=== PATIENT | female | born 1965 ===

== ENCOUNTER → 2022-06-03 11:07 | Outpatient (BNVA) | payer OTHER, SELFPAY | PROVIDERS: PCP Internal Medicine; Visit Provider Internal Medicine Rheumatology | DX: Z13.89 Encounter for screening for other disorder (principal) ==

== ENCOUNTER 2022-06-03 12:08 | Outpatient (REF) | payer OTHER, SELFPAY ==
[2022-06-03 13:58] LABS: MANUAL DIFF FLAG NO
[2022-06-03 14:14] LABS: Basophils Percent Auto 0.5 % (0-2); Eosinophils Absolute Auto 0.1 X10*3/uL (0.0-0.4); Hematocrit 41.3 % (37.0-47.0); Hemoglobin 13.3 g/dl (12.0-16.0); Imm Gran Abs Auto 0.02 X10*3/uL (0.00-0.03); Imm Gran Pct Auto 0.3 % (0.0-0.4); Lymphocytes Percent Auto 17.5 % (20-40); Mean Corpuscular HGB Conc 32.2 g/dl (31.0-35.0); Mean Corpuscular Hemoglobin 29.3 pg (27.0-33.0); Mean Platelet Volume 11.2 fL (9.4-12.3); Monocytes Absolute Auto 0.4 X10*3/uL (0.1-1.2); Monocytes Percent Auto 6.7 % (2-11); Neutrophils Absolute Auto 4.4 x10*3/uL (2.0-8.3); Platelet Count 262 X10*3/uL (160-400); Red Blood Count 4.54 X10*6/uL (4.20-5.50); Red Cell Distribution Width 14.3 % (11.0-16.0); White Blood Count 5.9 X10*3/uL (4.8-10.8)
[2022-06-03 14:38] LABS: Alanine Aminotransferase 10 U/L (0-31); Albumin Level 4.3 g/dL (3.5-5.0); Alkaline Phosphatase 100 U/L (39-117); Anion Gap 15 (12-20); Aspartate Amino Transferase 19 U/L (5-31); Bilirubin Total 0.6 mg/dL (0.0-1.0); Blood Urea Nitrogen 6 mg/dL (9-16); C Reactive Protein 2.69 mg/dL (< or = 0.50); Calcium 9.4 mg/dL (8.4-10.2); Carbon Dioxide 25 mmol/L (22-29); Chloride 102 mmol/L (96-108); Estimated Glomerular Filt Rate > 60; Glucose Random 87 mg/dL (60-115); Potassium 4.2 mmol/L (3.3-5.1); Sodium 138 mmol/L (135-145); Total Protein 8.9 g/dL (6.5-8.0)
[2022-06-03 14:52] LABS: Creatinine Urine 28.16 mg/dL; Total Protein Urine Random < 7 mg/dL (<12)
[2022-06-03 15:00] LABS: Erythrocyte Sedimentation Rate 64 MM/HR (0-20)
[2022-06-04 08:44] LABS: HBS Num1 13.65 mIU/mL (0-7.99); HBc Num1 0.08 S/CO (0.00-0.79); HBsAGNum1 0.35 S/CO (0.00-0.99); Hepatitis A Antibody IgM 0.14 Index (0-0.79); Hepatitis B Core Antibody Nonreactive (Nonreactive); Hepatitis B Surface Antigen Negative (Negative); ~HepC Num1 0.12 S/CO (0.00-0.79); ~Hepatitis A Antibody IgM Nonreactive (Nonreactive); ~Hepatitis B Surface Antibody REACTIVE (Nonreactive); ~Hepatitis C Antibody Nonreactive (Nonreactive)
[2022-06-06 18:58] LABS: TS Negative Control Passed; TS Panel A 0; TS Panel B 0; TS Positive Control Passed; TSpotTB Negative (Negative)
== END 2022-06-03 12:09 | disposition home or self-care (01) ==
LOC: HO.10HDL 12:08
PROVIDERS: Visit Provider Internal Medicine Rheumatology
DX: M06.9 Rheumatoid arthritis, unspecified (principal); Z79.899 Other long term (current) drug therapy
CPT/HCPCS: 36415; 80053; 84156; 85025; 85652; 86140; 86481; 86704; 86706; 86709; 86803; 87340

== ENCOUNTER 2022-07-16 14:28 | Outpatient (REF) | payer OTHER, SELFPAY ==
--- NOTE | ~2022-07-16 | XR_ITS ---
EXAMINATION: XR HAND, RIGHT XR HAND, LEFT CLINICAL INFORMATION: Rheumatoid arthritis. COMPARISON: None TECHNIQUE: 3 views each hand. FINDINGS: RIGHT HAND: There is flexion deformity at the 1st MCP joint and extension deformity PIP joint 1st digit, Hitchhiker's Thumb. There is mild flexion deformity PIP joint 2nd digits and likely extension deformities of PIP joints 2nd through 4th digits. No bony erosive changes seen. There is mild osteopenia. Mild ulnar deviation of DIP joints of 2nd and 3rd digits seen The joint spaces are reduced throughout the PIP and DIP joints. Mild reduction in radiocarpal joint spaces present. No bony fracture seen. There is mild soft tissue swelling along the PIP joints and MCP joints. XR/XR hand RT min 3V IMPRESSION: 1. Flexion deformity 1st MCP joint and extension deformity PIP joint [id number] digit. 2. Flexion deformity PIP joints 2nd through 4th digits. 3. No visible acute fracture or dislocation seen. 4. Findings are most suggestive of rheumatoid arthritis with secondary osteoarthritis.
--- NOTE | ~2022-07-16 | XR_ITS ---
EXAMINATION: XR HAND, RIGHT XR HAND, LEFT CLINICAL INFORMATION: Rheumatoid arthritis. COMPARISON: None TECHNIQUE: 3 views each hand. FINDINGS: RIGHT HAND: There is flexion deformity at the 1st MCP joint and extension deformity PIP joint 1st digit, Hitchhiker's Thumb. There is mild flexion deformity PIP joint 2nd digits and likely extension deformities of PIP joints 2nd through 4th digits. No bony erosive changes seen. There is mild osteopenia. Mild ulnar deviation of DIP joints of 2nd and 3rd digits seen The joint spaces are reduced throughout the PIP and DIP joints. Mild reduction in radiocarpal joint spaces present. No bony fracture seen. There is mild soft tissue swelling along the PIP joints and MCP joints. XR/XR hand LT min 3V IMPRESSION: 1. Flexion deformity 1st MCP joint and extension deformity PIP joint [id number] digit. 2. Flexion deformity PIP joints 2nd through 4th digits. 3. No visible acute fracture or dislocation seen. 4. Findings are most suggestive of rheumatoid arthritis with secondary osteoarthritis.
[2022-07-16 14:49] LABS: MANUAL DIFF FLAG NO
[2022-07-16 15:15] LABS: Basophils Percent Auto 0.4 % (0-2); Eosinophils Absolute Auto 0.1 X10*3/uL (0.0-0.4); Eosinophils Percent Auto 1.1 % (0-4); Hematocrit 39.3 % (37.0-47.0); Imm Gran Abs Auto 0.01 X10*3/uL (0.00-0.03); Imm Gran Pct Auto 0.2 % (0.0-0.4); Lymphocytes Absolute Auto 1.4 X10*3/uL (1.2-4.9); Lymphocytes Percent Auto 25.7 % (20-40); Mean Corpuscular HGB Conc 33.1 g/dl (31.0-35.0); Mean Corpuscular Hemoglobin 29.9 pg (27.0-33.0); Mean Corpuscular Volume 90.3 fL (80.0-98.0); Mean Platelet Volume 11.3 fL (9.4-12.3); Monocytes Absolute Auto 0.4 X10*3/uL (0.1-1.2); Monocytes Percent Auto 6.6 % (2-11); Neutrophils Absolute Auto 3.6 x10*3/uL (2.0-8.3); Platelet Count 190 X10*3/uL (160-400); Red Blood Count 4.35 X10*6/uL (4.20-5.50); Red Cell Distribution Width 15.1 % (11.0-16.0); White Blood Count 5.5 X10*3/uL (4.8-10.8)
[2022-07-16 16:05] LABS: Alanine Aminotransferase 38 U/L (0-31); Aspartate Amino Transferase 28 U/L (5-31); C Reactive Protein 0.81 mg/dL (< or = 0.50); Estimated Glomerular Filt Rate > 60
[2022-07-16 16:11] LABS: Erythrocyte Sedimentation Rate 38 MM/HR (0-20)
== END 2022-07-16 14:29 | disposition home or self-care (01) ==
LOC: HO.LAB 14:28
PROVIDERS: PCP Internal Medicine; Visit Provider Internal Medicine Rheumatology
DX: M06.9 Rheumatoid arthritis, unspecified (principal); Z79.899 Other long term (current) drug therapy
CPT/HCPCS: 36415; 73130; 82565; 84450; 84460; 85025; 85652; 86140

== ENCOUNTER → 2022-07-21 11:07 | Outpatient (BNVA) | payer OTHER, SELFPAY | PROVIDERS: PCP Internal Medicine; Visit Provider Internal Medicine Rheumatology | DX: Z13.89 Encounter for screening for other disorder (principal) ==

== ENCOUNTER 2022-11-20 09:42 | Outpatient (REF) | payer OTHER, SELFPAY | END 2022-11-20 09:43 | disposition home or self-care (01) | LOC: HO.LAB 09:42 | PROVIDERS: PCP Internal Medicine; Visit Provider Internal Medicine Rheumatology | DX: M06.9 Rheumatoid arthritis, unspecified (principal); Z79.899 Other long term (current) drug therapy | CPT/HCPCS: 36415; 82565; 84450; 84460; 85025; 85652; 86140 ==

== ENCOUNTER 2022-11-29 10:31 | Outpatient (AMB) | payer OTHER, SELFPAY ==
[2022-11-29 10:46] VITALS: BP 112/68; PULSE 57; TEMP 36.6; O2SAT 98; BMI 22.7
--- NOTE | 2022-11-29 10:46 | MHC.OFFVIS ---
Intake Vital Signs 11/29/22 10:46 Height 5 ft Weight 116 lb 6.465 oz BMI 22.7 BP 112/68 Blood Pressure Location Lt brachial Position Sitting Pulse 57 Pulse Source Pulse Oximeter Temp 97.9 F Temp Source Skin Pulse Oximetry (%) 98 Intake Visit Reasons: 6W follow up RA per Intake Note: Pt seen today for RA follow up. Denies new or increased pain. 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 She remains on 10 mg weekly methotrexate, folic acid 1 mg daily, and 200 mg daily hydroxychloroquine. She says the pain has diminished in her hands. She thinks they are less swollen as well. She still has deformity in the thumb areas and limited motion in the elbows but does not think that is too limiting for her activities presently. She has had one elevation of a transaminase but on recent testing it was normal. [facility] Surgical History No history of previous surgery Family History Sister Breast cancer Father Hypertension Heart disease Mother Diabetes Social History Alcohol intake: never Patient Tobacco Use Status: Never used Tobacco Review of Systems Const Details: Negative for appetite change, weight change, fever, chills, malaise and fatigue Eyes Details: Negative for vision change, dry eyes,headaches and dizziness ENT Details: Negative for hearing change, tinnitus, oral ulcer, nose bleeds and oral dryness. Card Details: Negative chest pain, edema and syncope Resp Details: Negative for SOB, cough and wheezing GI Details: Negative indigestion/heartburn, nausea, abdominal pain, bowel changes, diarrhea, constipation and bloody stool. Skin/Breast Details: Negative for itching, rash, hives, Raynaud's symptoms, sun sensitivity, and skin cancer Juan José/Lymph Details: Negative for excessive bruising or bleeding. Physical Exam Vital Signs: Last Vital Signs Temp 97.9 F 11/29/22 10:46 Pulse 57 07/10/23 10:46 BP 112/68 11/29/22 10:46 Pulse Ox 98 11/29/22 10:46 BMI result Body Mass Index 22.7 APPEARANCE: Patient in no acute distress EYES no redness, pupils equal and reactive to light, eyelids normal EXTREMITIES: No edema, no calf tenderness, normal peripheral pulses. JOINT EXAM: EXTREMITIES:? No edema, no calf tenderness, normal peripheral pulses. JOINT EXAM: Cervical Spine:? Lateral flexion seems intact to 15 degrees.? Lateral rotation seems limited at about 45 degrees but without pain.? No tenderness. Thoracic Spine:.? No scoliosis.? No tenderness on palpation. Lumbar Spine:.? Alignment normal.? Full range of motion without pain, no tenderness. Chest Wall:.? No tenderness, swelling, increased warmth or erythema. Hands:? Right:? There is flexion deformity at the 1st MCP consistent with a boutonniere deformity.? There was laxity and hyperextension at the thumb IP.? The 1st 3 MCPs have swelling but no tenderness.? There is no flexor tendon triggering.? There is no thenar atrophy or sensory loss.? There is no PIP or distal IP joint tenderness or swelling.? ? Left:? There is flexion deformity, boutonniere deformity and laxity in the thumb joints as there is on the right.? The 1st and 3rd MCPs have swelling without tenderness.? There is slight thickening at the 2nd and 3rd PIP without tenderness or pain with motion. Other joints in the hand are not tender or swollen.? There is no thenar atrophy or sensory loss. Wrists:.? Right: no pain with flexion or extension at 60 degrees with some slight tenderness but no swelling.? Left:? no pain with flexion or extension 45 degrees with some mild tenderness but no swelling, increased warmth or erythema. Elbows:.? Right:? The elbow lacks about 45 degrees of full extension with flexion that appears to be normal.? The is no discomfort with extremes of those motions.? There is no tenderness over the joint space with minimal swelling but no redness or warmth.? Left: The elbow lacks about 10 degrees of full extension with some no tenderness over the joint space without swelling. Shoulders:? Right: Normal pain-free range of motion. There is no tenderness, abductor weakness or adenopathy.? No swelling.? Left:?? Full range of motion without pain. No tenderness, weakness, swelling, increased warmth or erythema. Hips:.? Full range of motion without pain. Hip bursa:.? No tenderness. Knees:.?? Normal pain-free range of motion without tenderness, swelling, increased warmth or erythema.? There is no effusion or crepitation Ankles:.? Normal pain-free range of motion without tenderness, swelling, increased warmth or erythema. Feet:? Normal pain-free range of motion without tenderness, swelling, increased warmth or erythema. Tender points:? No tenderness to digital palpation at the occiput, trapezius, second rib, lateral epicondyle, knees, greater trochanter and gluteal area bilaterally. ?? 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 There still is deformity, particularly at the thumbs. Given that the inflammation is better now I think it is reasonable to have her see a surgeon to see if they might offer a procedure that might help with the functionality of the thumbs. She is able to oppose the digits with the thumb although it is in a rather awkward position. I wonder if they could offer her a fusion at the thumb that would keep the mechanics more favorable for opposing the thumb. She has already had x-rays so we will send her to Hand surgery to see their opinion. She will continue with current treatment. We will check her back in about 3 months with lab work before that visit. Orders: Orders Erythrocyte Sedimentation Rate Today M06.9 - Rheumatoid arthritis, unspecified Alanine Aminotransferase Today M06.9 - Rheumatoid arthritis, unspecified, Z79.899 - Other long-term (current) drug therapy C Reactive Protein Today M06.9 - Rheumatoid arthritis, unspecified Aspartate Amino Transferase Today M06.9 - Rheumatoid arthritis, unspecified, Z79.899 - Other manager long term care (current) drug therapy Creatinine Today M06.9 - Rheumatoid arthritis, unspecified, Z79.899 - Other long-term (current) drug therapy Complete Blood Count Auto Diff Today M06.9 - Rheumatoid arthritis, unspecified, Z79.899 - Other manager long term care (current) drug therapy Referrals Hand Surgery Referral M06.9 - Rheumatoid arthritis, unspecified Medications: Refilled methotrexate sodium 10 mg (4 x 2.5 mg) PO QWEEK 16 tabs 3RF M06.9 - Rheumatoid arthritis, unspecified folic acid 1 mg PO DAILY 30 tabs 5RF M06.9 - Rheumatoid arthritis, unspecified Coding Level of Care Code Est Pt Level 3 (37194) Diagnoses 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
== END 2022-11-29 11:43 | disposition home or self-care (01) ==
LOC: HO.RHE 10:31
PROVIDERS: PCP Internal Medicine; Visit Provider Internal Medicine Rheumatology
DX: Z79.899 Other long term (current) drug therapy (principal); M06.9 Rheumatoid arthritis, unspecified
CPT/HCPCS: 99213

== ENCOUNTER → 2022-11-29 10:31 | Outpatient (BNVA) | payer OTHER, SELFPAY | PROVIDERS: PCP Internal Medicine; Visit Provider Internal Medicine Rheumatology ==

== ENCOUNTER 2023-01-12 05:04 | Outpatient (REF) | payer OTHER, SELFPAY | END 2023-01-12 05:05 | disposition home or self-care (01) | LOC: HO.HOSX 05:04 | PROVIDERS: Visit Provider Orthopaedic Surgery | DX: Z13.89 Encounter for screening for other disorder (principal) ==

== ENCOUNTER 2023-02-21 09:42 | Outpatient (AMB) | payer OTHER, SELFPAY ==
--- NOTE | 2023-02-21 09:49 | MHC.OFFVIS ---
Intake Vital Signs 02/21/23 09:56 Height 5 ft Weight 119 lb 4.321 oz BMI 23.3 BP 108/62 Blood Pressure Location Lt brachial Position Sitting Pulse 59 Pulse Source Pulse Oximeter Temp 97.6 F Temp Source Skin Pulse Oximetry (%) 92 Oxygen Delivery Method Room Air Intake Visit Reasons: ra Intake Note: Patient presents today to follow up on RA. 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 She remains on methotrexate 10 mg weekly, folic acid 1 mg daily, and hydroxychloroquine 200 mg daily. In general joint pains have been minimal with this regimen. She gets some fatigue the day after the methotrexate but otherwise has no apparent side effects. I have referred her to Hand surgery but she did not seem to get an appointment. She thinks she may have forgotten at or missed the opportunity to call back. This was mainly to deal with the deformity of her thumbs bilaterally. [facility] Surgical History No history of previous surgery Family History Sister Breast cancer Father Hypertension Heart disease Mother Diabetes Social History Alcohol intake: never Patient Tobacco Use Status: Never used Tobacco Review of Systems Const Details: Some fatigue after the methotrexate dose.Negative for appetite change, weight change, fever, chills, malaise Eyes Details: Negative for vision change, dry eyes,headaches and dizziness ENT Details: Negative for hearing change, tinnitus, oral ulcer, nose bleeds and oral dryness. Card Details: Negative chest pain, edema and syncope Resp Details: Negative for SOB, cough and wheezing GI Details: Negative indigestion/heartburn, nausea, abdominal pain, bowel changes, diarrhea, constipation and bloody stool. Skin/Breast Details: Negative for itching, rash, hives, Raynaud's symptoms, sun sensitivity, and skin cancer Juan José/Lymph Details: Negative for excessive bruising or bleeding. Physical Exam Vital Signs: Last Vital Signs Temp 97.6 F 02/21/23 09:56 Pulse 59 02/21/23 09:56 BP 108/62 02/21/23 09:56 Pulse Ox 92 02/21/23 09:56 Oxygen Delivery Method Room Air 02/21/23 09:56 BMI result Body Mass Index 23.3 APPEARANCE: Patient in no acute distress EYES no redness, pupils equal and reactive to light, eyelids normal EXTREMITIES: No edema, no calf tenderness, normal peripheral pulses. SKIN: No inflammatory or neoplastic lesions. Normal color and turgor JOINT EXAM: Cervical Spine:? Lateral flexion seems intact to 15 degrees.? Lateral rotation seems limited at about 45 degrees but without pain.? No tenderness. Thoracic Spine:.? No scoliosis.? No tenderness on palpation. Lumbar Spine:.? Alignment normal.? Full range of motion without pain, no tenderness. Chest Wall:.? No tenderness, swelling, increased warmth or erythema. Hands:? Right:? There is flexion deformity at the 1st MCP consistent with a boutonniere deformity.? There was laxity and hyperextension at the thumb IP.? The 1st 3 MCPs have swelling but no tenderness.? There is no flexor tendon triggering.? There is no thenar atrophy or sensory loss.? There is a suggestion of early swan-neck deformity with some hyperextension at the 2nd through 4th PIP joints but there is no swelling or tenderness in those joints. She has no distal IP joint tenderness or swelling.? ? Left:? There is flexion deformity, boutonniere deformity and laxity in the thumb joints as there is on the right.? The 1st MCP has some slight swelling. The MCPs however have no tenderness.? There is slight hyperextension at the 2nd through 4th PIP joints without swelling or tenderness. Other joints in the hand are not tender or swollen.? There is no thenar atrophy or sensory loss. Wrists:.? Right: no pain with flexion or extension at 60 degrees with no tenderness or swelling.? Left:? no pain with flexion or extension 45 degrees with some mild tenderness but no swelling, increased warmth or erythema. Elbows:.? Right:? The elbow lacks about 30 degrees of full extension with flexion that appears to be normal.? The is no discomfort with extremes of those motions.? There is no tenderness over the joint space with minimal swelling but no redness or warmth.? Left: The elbow lacks about 10 degrees of full extension with some no tenderness over the joint space without swelling. Shoulders:? Right: Normal pain-free range of motion. There is no tenderness, abductor weakness or adenopathy.? No swelling.? Left:?? Full range of motion without pain. No tenderness, weakness, swelling, increased warmth or erythema. Hips:.? Full range of motion without pain. Hip bursa:.? No tenderness. Knees:.?? Normal pain-free range of motion without tenderness, swelling, increased warmth or erythema.? There is no effusion or crepitation Ankles:.? Normal pain-free range of motion without tenderness, swelling, increased warmth or erythema. Feet: Normal pain-free range of motion without tenderness, swelling, increased warmth or erythema. Results Reviewed Results Reviewed: Laboratory Tests 11/20/22 09:57 WBC 4.2 L Hgb 12.9 ESR 38 H Creatinine 0.79 AST 21 ALT 22 C-Reactive Protein 0.83 H Assessment & Plan Assessment & Plan (1) Rheumatoid arthritis involving multiple joints: Comment: 2006: Hydroxychloroquine started May 2022: methotrexate added Code(s): M06.9 - Rheumatoid arthritis, unspecified Plan She has rheumatoid arthritis with not much on exam to suggest active synovitis currently but there is some deformity at the thumbs. I am not sure what Orthopedics could offer but I think that she should have a consultation about that so I did put in another referral. She already has had some x-rays done. She is due for lab work today monitoring her methotrexate usage. Assuming the blood work is okay we will continue with the current regimen. Follow-up at 3 months would be reasonable. Orders: Referrals Hand Surgery Referral M06.9 - Rheumatoid arthritis, unspecified Medications: Refilled methotrexate sodium 10 mg (4 x 2.5 mg) PO QWEEK 16 tabs 3RF M06.9 - Rheumatoid arthritis, unspecified Coding Level of Care Code Est Pt Level 3 (03680) Diagnoses Rheumatoid arthritis involving multiple joints M06.9
[2023-02-21 09:56] VITALS: BP 108/62; PULSE 59; TEMP 36.4; O2SAT 92; BMI 23.3
== END 2023-02-21 10:15 | disposition home or self-care (01) ==
PROVIDERS: PCP Internal Medicine; Visit Provider Internal Medicine Rheumatology
DX: M06.9 Rheumatoid arthritis, unspecified (principal)
CPT/HCPCS: 99213

== ENCOUNTER → 2023-02-21 09:42 | Outpatient (BNVA) | payer OTHER, SELFPAY | PROVIDERS: PCP Internal Medicine; Visit Provider Internal Medicine Rheumatology ==

== ENCOUNTER 2023-02-21 10:39 | Outpatient (REF) | payer OTHER, SELFPAY ==
[2023-02-21 13:33] LABS: MANUAL DIFF FLAG NO
[2023-02-21 13:43] LABS: Basophils Percent Auto 0.5 % (0-2); Eosinophils Absolute Auto 0.1 X10*3/uL (0.0-0.4); Eosinophils Percent Auto 1.3 % (0-4); Hemoglobin 12.6 g/dl (12.0-16.0); Imm Gran Abs Auto 0.01 X10*3/uL (0.00-0.03); Imm Gran Pct Auto 0.2 % (0.0-0.4); Lymphocytes Absolute Auto 1.4 X10*3/uL (1.2-4.9); Lymphocytes Percent Auto 25.5 % (20-40); Mean Corpuscular HGB Conc 32.3 g/dl (31.0-35.0); Mean Corpuscular Hemoglobin 30.6 pg (27.0-33.0); Mean Corpuscular Volume 94.7 fL (80.0-98.0); Monocytes Absolute Auto 0.4 X10*3/uL (0.1-1.2); Monocytes Percent Auto 7.4 % (2-11); Neutrophils Absolute Auto 3.6 x10*3/uL (2.0-8.3); Neutrophils Percent Auto 65.1 % (45-73); Platelet Count 187 X10*3/uL (160-400); Red Blood Count 4.12 X10*6/uL (4.20-5.50); Red Cell Distribution Width 14.4 % (11.0-16.0); White Blood Count 5.6 X10*3/uL (4.8-10.8)
[2023-02-21 13:53] LABS: Alanine Aminotransferase 11 U/L (0-31); Aspartate Amino Transferase 17 U/L (5-31); C Reactive Protein 1.16 mg/dL (< or = 0.50); Estimated Glomerular Filt Rate > 60
[2023-02-21 14:20] LABS: Erythrocyte Sedimentation Rate 38 MM/HR (0-20)
== END 2023-02-21 10:40 | disposition home or self-care (01) ==
LOC: HO.10HDL 10:39
PROVIDERS: Visit Provider Internal Medicine Rheumatology
DX: M06.9 Rheumatoid arthritis, unspecified (principal); Z79.899 Other long term (current) drug therapy
CPT/HCPCS: 36415; 82565; 84450; 84460; 85025; 85652; 86140

== ENCOUNTER 2023-08-27 09:15 | Outpatient (REF) | payer OTHER, SELFPAY ==
[2023-08-27 09:52] LABS: MANUAL DIFF FLAG NO
[2023-08-27 10:36] LABS: Basophils Percent Auto 0.7 % (0-2); Eosinophils Absolute Auto 0.1 X10*3/uL (0.0-0.4); Eosinophils Percent Auto 1.3 % (0-4); Hematocrit 39.1 % (37.0-47.0); Imm Gran Abs Auto 0.01 X10*3/uL (0.00-0.03); Imm Gran Pct Auto 0.2 % (0.0-0.4); Lymphocytes Absolute Auto 1.1 X10*3/uL (1.2-4.9); Lymphocytes Percent Auto 23.9 % (20-40); Mean Corpuscular HGB Conc 33.2 g/dl (31.0-35.0); Mean Corpuscular Hemoglobin 30.7 pg (27.0-33.0); Mean Corpuscular Volume 92.4 fL (80.0-98.0); Mean Platelet Volume 10.8 fL (9.4-12.3); Monocytes Absolute Auto 0.3 X10*3/uL (0.1-1.2); Monocytes Percent Auto 7.4 % (2-11); Neutrophils Absolute Auto 3.1 x10*3/uL (2.0-8.3); Neutrophils Percent Auto 66.5 % (45-73); Platelet Count 204 X10*3/uL (160-400); Red Blood Count 4.23 X10*6/uL (4.20-5.50); Red Cell Distribution Width 14.9 % (11.0-16.0); White Blood Count 4.6 X10*3/uL (4.8-10.8)
[2023-08-27 11:20] LABS: Erythrocyte Sedimentation Rate 38 MM/HR (0-20)
[2023-08-27 11:22] LABS: Alanine Aminotransferase 33 U/L (0-31); Albumin Level 3.9 g/dL (3.5-5.0); Alkaline Phosphatase 107 U/L (39-117); Anion Gap 11 (12-20); Aspartate Amino Transferase 22 U/L (5-31); Bilirubin Total 0.9 mg/dL (0.0-1.0); Blood Urea Nitrogen 14 mg/dL (9-16); Calcium 9.6 mg/dL (8.4-10.2); Carbon Dioxide 29 mmol/L (22-29); Chloride 106 mmol/L (96-108); Estimated Glomerular Filt Rate > 60; Glucose Random 102 mg/dL (60-115); Potassium 4.3 mmol/L (3.3-5.1); Sodium 142 mmol/L (135-145); Total Protein 8.5 g/dL (6.5-8.0)
== END 2023-08-27 09:16 | disposition home or self-care (01) ==
LOC: HO.LAB 09:15
PROVIDERS: PCP Internal Medicine; Visit Provider Student in an Organized Health Care Education/Training Program
DX: M06.9 Rheumatoid arthritis, unspecified (principal); Z79.899 Other long term (current) drug therapy
CPT/HCPCS: 36415; 80053; 85025; 85652; 86140

== ENCOUNTER 2023-08-29 09:38 | Outpatient (AMB) | payer OTHER, SELFPAY ==
--- NOTE | 2023-08-29 09:44 | A.OFFVIS_ITS ---
Intake Vital Signs 08/29/23 09:47 Height 5 ft Weight 119 lb 11.376 oz BMI 23.4 BP 112/60 Blood Pressure Location Rt brachial Pulse 68 Pulse Source Pulse Oximeter Pulse Oximetry (%) 98 Oxygen Delivery Method Room Air Intake Visit Reasons: RA/cm Intake Note: Patient last seen by Dr Virk on 02/21/23 presents today for follow up and test results. Delivery Analyst Required: No Accompanied by: Self / Same As Patient Allergies No Known Allergies Allergy (Verified 08/29/23 09:49) Medication List - Last Reconciled 08/29/23 by David Sheldon MD folic acid 1 mg PO DAILY methotrexate sodium 10 mg (4 x 2.5 mg) PO QWEEK HPI HPI Comments History of Present Illness Details 57-year-old female with seropositive def orming RA/SLE overlap who presents for follow-up. She is on methotrexate 4 tabs weekly and folic acid 1 mg daily. She states that she self discontinued her hydroxychloroquine about 6 months ago as she felt it was not helping her. She has been feeling well overall. Has had no new symptoms. She states that she did not get called to schedule an appointment with hand surgeon. She states that she not interested in any evaluation for her thumb deformities. Has not had any skin rashes. She does not consume alcohol. Most recent history by Dr. Virk 02/2023: The patient returns for evaluation of her rheumatoid arthritis. She remains on methotrexate 10 mg weekly, folic acid 1 mg daily, and hydroxychloroquine 200 mg daily. In general joint pains have been minimal with this regimen. She gets some fatigue the day after the methotrexate but otherwise has no apparent side effects. I have referred her to Hand surgery but she did not seem to get an appointment. She thinks she may have forgotten at or missed the opportunity to call back. This was mainly to deal with the deformity of her thumbs bilaterally. [facility] Surgical History No history of previous surgery Family History Sister Breast cancer Father Hypertension Heart disease Mother Diabetes Social History Alcohol intake: never Patient Tobacco Use Status: Never used Tobacco Female Reproductive History Menstrual Total pregnancies: 0 Review of [place] [facility] [place], Denies arthralgias and Denies joint swelling Physical Exam Vital Signs: Last Vital Signs Pulse 68 08/29/23 09:47 BP 112/60 08/29/23 09:47 Pulse Ox 98 08/29/23 09:47 Oxygen Delivery Method Room Air 08/29/23 09:47 BMI result Body Mass Index 23.4 Const General: cooperative, healthy appearing and comfortable Nutritional Appearance: average body habitus Orientation/consciousness: patient oriented x3 Limitations: no limitations HEENT Head: Yes normocephalic and Yes atraumatic Mouth: moist mucous membranes Resp Effort & Inspection: normal respiratory effort and able to speak in complete sentences Auscultation: clear to auscultation bilaterally Cardio Rate: regular rate Rhythm: regular rhythm GI Inspection: No distended Palpation (GI): Soft to palpation and nontender Skin General skin exam: no rashes or lesions noted Neuro General: patient oriented x3 Extrem Other: Significant RA deformities of both hands Bilateral Z deformity of both thumbs Bilateral swan-neck deformities of multiple fingers Bilateral flexion deformities at the MCPs No active synovitis Normal range of motion of both wrists Thank you flexion contractures of both elbows but no active synovitis Normal range of motion of both shoulders Normal range of motion of knees without pain No ankle synovitis bilaterally Negative MTP squeeze test bilaterally Normal nailfold capillaroscopy Assessment & Plan Assessment & Plan (1) Rheumatoid arthritis involving multiple joints: Comment: 2006: Hydroxychloroquine started 2020: persistent synovitis ++ CCP May 2022: methotrexate added effective HCQ self DC by patient 02/2024 Code(s): M06.9 - Rheumatoid arthritis, unspecified Plan: This is a 57-year-old female with seropositive deforming RA who presents for follow-up. Doing well overall with no active synovitis. Continue with methotrexate 10 mg weekly plus folic acid 1 mg daily Patient self-discontinued hydroxychloroquine about 6 months ago with without any change in her symptoms. 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 Will monitor regularly Plan I spent 32 minutes reviewing patient's chart, reviewing her [place] chart, evaluating patient, ordering diagnostic workup, counseling patient and documenting in the chart Orders: Orders Anti Extractable Nuclear Ag 3 Months M32.9 - Systemic lupus erythematosus, unspecified Complement C3 3 Months M32.9 - Systemic lupus erythematosus, unspecified Complement C4 3 Months M32.9 - Systemic lupus erythematosus, unspecified C Reactive Protein 3 Months M32.9 - Systemic lupus erythematosus, unspecified DNA Double Stranded-Crithidia 3 Months M32.9 - Systemic lupus erythematosus, unspecified Erythrocyte Sedimentation Rate 3 Months M32.9 - Systemic lupus erythematosus, unspecified Complete Blood Count Auto Diff 3 Months R74.01 - Elevation of levels of liver transaminase levels Smooth Muscle Antibody 3 Months R74.01 - Elevation of levels of liver transaminase levels Beta-2 Glycoprotein Antibody 3 Months D68.61 - Antiphospholipid syndrome Lupus Anticoagulant Panel 3 Months D68.61 - Antiphospholipid syndrome Anti DNA DS Antibody 3 Months M32.9 - Systemic lupus erythematosus, unspecified Protein Creatinine Ratio, Ur 3 Months M32.9 - Systemic lupus erythematosus, unspecified Sjogren's Antibodies 3 Months M32.9 - Systemic lupus erythematosus, unspecified UA w Microscopic 3 Months M32.9 - Systemic lupus erythematosus, unspecified Comprehensive Met. Panel 3 Months R74.01 - Elevation of levels of liver transaminase levels Liver Kidney Microsomal Ab 3 Months R74.01 - Elevation of levels of liver transaminase levels Mitochondrial Antibody 3 Months R74.01 - Elevation of levels of liver transa minase levels Cardiolipin Antibodies 3 Months D68.61 - Antiphospholipid syndrome Medications: Refilled methotrexate sodium 10 mg (4 x 2.5 mg) PO QWEEK 48 tabs 0RF M06.9 - Rheumatoid arthritis, unspecified folic acid 1 mg PO DAILY 90 tabs 1RF M06.9 - Rheumatoid arthritis, unspecified Coding Level of Care Code Est Pt Level 5 (11805) Diagnoses Rheumatoid arthritis involving multiple joints M06.9 SLE (systemic lupus erythematosus) M32.9 intermediate designer use of drug Z79.899
[2023-08-29 09:47] VITALS: BP 112/60; PULSE 68; O2SAT 98; BMI 23.4
== END 2023-08-29 10:16 | disposition home or self-care (01) ==
PROVIDERS: PCP Internal Medicine; Visit Provider Student in an Organized Health Care Education/Training Program
DX: M06.9 Rheumatoid arthritis, unspecified (principal); M32.9 Systemic lupus erythematosus, unspecified; Z79.899 Other long term (current) drug therapy
CPT/HCPCS: 99214

== ENCOUNTER → 2023-08-29 09:38 | Outpatient (BNVA) | payer OTHER, SELFPAY | PROVIDERS: PCP Internal Medicine; Visit Provider Student in an Organized Health Care Education/Training Program ==

== ENCOUNTER 2024-03-12 08:29 | Outpatient (REF) | payer OTHER, SELFPAY ==
[2024-03-12 08:59] LABS: MANUAL DIFF FLAG NO
[2024-03-12 09:11] LABS: Basophils Percent Auto 0.5 % (0-2); Eosinophils Absolute Auto 0.1 X10*3/uL (0.0-0.4); Eosinophils Percent Auto 1.1 % (0-4); Hematocrit 39.3 % (37.0-47.0); Imm Gran Abs Auto 0.01 X10*3/uL (0.00-0.03); Imm Gran Pct Auto 0.2 % (0.0-0.4); Lymphocytes Absolute Auto 1.2 X10*3/uL (1.2-4.9); Lymphocytes Percent Auto 26.3 % (20-40); Mean Corpuscular HGB Conc 33.1 g/dl (31.0-35.0); Mean Corpuscular Hemoglobin 31.3 pg (27.0-33.0); Mean Corpuscular Volume 94.7 fL (80.0-98.0); Mean Platelet Volume 11.2 fL (9.4-12.3); Monocytes Absolute Auto 0.3 X10*3/uL (0.1-1.2); Monocytes Percent Auto 6.2 % (2-11); Neutrophils Absolute Auto 2.9 x10*3/uL (2.0-8.3); Neutrophils Percent Auto 65.7 % (45-73); Platelet Count 177 X10*3/uL (160-400); Red Blood Count 4.15 X10*6/uL (4.20-5.50); Red Cell Distribution Width 14.5 % (11.0-16.0); White Blood Count 4.4 X10*3/uL (4.8-10.8)
[2024-03-12 09:49] LABS: Erythrocyte Sedimentation Rate 36 MM/HR (0-20)
[2024-03-12 10:15] LABS: Appearance Urine Clear; Color Urine Yellow; Glucose Urine UA Negative (Negative); Leukocyte Esterase Urine Moderate (2+) (Negative); Nitrite Urine Negative (Negative); PH 5.5 (5.0-9.0); Specific Gravity - Urine 1.015 (1.005-1.025); UMIC TRIGGER UA YES; Urine Blood Trace (Negative); Urine Ketones Negative (Negative); Urine Protein Negative (Neg-Trace)
[2024-03-12 10:32] LABS: Bacteria Urine None Seen (None Seen); Hyaline Casts Urine 0-2 /LPF (0-2); RBC Urine 0-2 /HPF (0-2); Squamous Epithelial Cell Urine 0-2 /HPF (0-2); WBC Urine 0-5 /HPF (0-5)
[2024-03-12 10:41] LABS: Albumin Level 3.9 g/dL (3.5-5.0); Alkaline Phosphatase 85 U/L (39-117); Anion Gap 11 (12-20); Bilirubin Total 0.6 mg/dL (0.0-1.0); Blood Urea Nitrogen 11 mg/dL (9-16); C Reactive Protein 1.03 mg/dL (< or = 0.50); Calcium 9.1 mg/dL (8.4-10.2); Carbon Dioxide 24 mmol/L (22-29); Chloride 110 mmol/L (96-108); Estimated Glomerular Filt Rate > 60; Glucose Random 88 mg/dL (60-115); Potassium 3.9 mmol/L (3.3-5.1); Sodium 141 mmol/L (135-145); Total Protein 8.1 g/dL (6.5-8.0)
[2024-03-12 10:59] LABS: Creatinine Urine 62.04 mg/dL; Total Protein Urine Random < 7 mg/dL (<12)
[2024-03-12 12:34] LABS: Alanine Aminotransferase 21 U/L (0-31); Aspartate Amino Transferase 26 U/L (5-31)
[2024-03-13 10:38] LABS: Complement C3 131 mg/dL (83-193)
[2024-03-13 20:58] LABS: Anti DNA DS Antibody 3 IU/mL; Antibody to SS-A Antigen <1.0 NEG AI (<1.0 NEG); Antibody to SS-B Antigen <1.0 NEG AI (<1.0 NEG); SM/Ribonucleoprotein Ab >8.0 POS AI (<1.0 NEG); Smith Protein >8.0 POS AI (<1.0 NEG)
[2024-03-13 21:03] LABS: Cardiolipin IgG Ab <2.0 GPL-U/mL; Cardiolipin IgM Ab <2.0 MPL-U/mL
[2024-03-15 14:29] LABS: Mitochondrial Antibodies NEGATIVE (NEGATIVE)
[2024-03-15 18:23] LABS: DNAds, Crithidia Antibody 1:10 titer (<1:10); DNAds, Crithidia Antibody Positive (Negative)
[2024-03-15 21:09] LABS: Smooth Muscle Antibody <20 U (<20)
[2024-03-15 22:33] LABS: Liver Kidney Microsomal Ab <=20.0 U (<=20.0)
[2024-03-17 21:13] LABS: PTT (LAC) Screen 33 sec (<=40)
[2024-03-18 13:13] LABS: Beta-2 Glycoprotein IgA <2.0 U/mL (<20.0); Beta-2 Glycoprotein IgG <2.0 U/mL (<20.0); Beta-2 Glycoprotein IgM <2.0 U/mL (<20.0)
== END 2024-03-12 08:30 | disposition home or self-care (01) ==
LOC: HO.LAB 08:29
PROVIDERS: PCP Internal Medicine; Visit Provider Student in an Organized Health Care Education/Training Program
DX: M32.9 Systemic lupus erythematosus, unspecified (principal); D68.61 Antiphospholipid syndrome; R74.01 Elevation of levels of liver transaminase levels
CPT/HCPCS: 36415; 80053; 81001; 82570; 84156; 85025; 85597; 85598; 85613; 85652; 85730; 86015; 86140; 86146; 86147; 86160; 86225; 86235; 86255; 86376; 86381

== ENCOUNTER 2024-04-30 08:40 | Outpatient (AMB) | payer OTHER, SELFPAY ==
[2024-04-30 08:44] VITALS: BP 112/60; PULSE 60; O2SAT 99; BMI 24.2
--- NOTE | 2024-04-30 08:44 | MHC.OFFVIS ---
Vital Signs 04/30/24 08:44 Height 5 ft Weight 124 lb 1.924 oz BMI 24.2 BP 112/60 Blood Pressure Location Lt brachial Position Sitting Pulse 60 Pulse Source Pulse Oximeter Pulse Oximetry (%) 99 Oxygen Delivery Method Room Air Intake Visit Reasons: SLE/RA/lm Intake Note: Patient last seen by doctor David Sheldon on 08/29/23. Presents today for SLE/RA follow up and test results. Allergies No Known Allergies Allergy (Verified 04/30/24 08:45) Medication List - Last Reconciled 04/30/24 by David Sheldon MD folic acid 1 mg PO DAILY methotrexate sodium 10 mg (4 x 2.5 mg) PO QWEEK HPI Comments Details: 58-year-old female with seropositive deforming RA/SLE overlap who presents for follow-up. She is on methotrexate 4 tabs weekly and folic acid 1 mg daily. She remains on methotrexate 10 mg weekly. She has noticed some redness on the lateral aspect of her left eye , she denies any photosensitivity, no discharge or crusting. Otherwise, She states that she feels about the same overall. No new joint pain swelling, she will be evaluated by a hand surgeon for her left thumb Z deformity soon. Most recent history by Dr. Virk 02/2023: The patient returns for evaluation of her rheumatoid arthritis. She remains on methotrexate 10 mg weekly, folic acid 1 mg daily, and hydroxychloroquine 200 mg daily. In general joint pains have been minimal with this regimen. She gets some fatigue the day after the methotrexate but otherwise has no apparent side effects. I have referred her to Hand surgery but she did not seem to get an appointment. She thinks she may have forgotten at or missed the opportunity to call back. This was mainly to deal with the deformity of her thumbs bilaterally. [facility] Surgical History No history of previous surgery Family History Sister Breast cancer Father Hypertension Heart disease Mother Diabetes Social History Alcohol intake: never Patient Tobacco Use Status: Never used Tobacco Female Reproductive History Menstrual Total pregnancies: 0 Review of Systems Eyes Details: Erythema Denies diplopia, Denies eye discharge, Reports irritation and Denies eye pain [place] Reports deformity, Denies arthralgias and Denies joint swelling Physical Exam Vital Signs: Last Vital Signs Pulse 60 04/30/24 08:44 BP 112/60 04/30/24 08:44 Pulse Ox 99 04/30/24 08:44 Oxygen Delivery Method Room Air 04/30/24 08:44 BMI result Body Mass Index 24.2 Const General: cooperative, healthy appearing and comfortable Nutritional Appearance: average body habitus Orientation/consciousness: patient oriented x3 Limitations: no limitations HEENT Head: Yes normocephalic and Yes atraumatic Mouth: moist mucous membranes Eyes Other: Nodular swelling surrounded by conjunctival erythema on the temporal aspect of the left eye Resp Effort & Inspection: normal respiratory effort and able to speak in complete sentences Auscultation: clear to auscultation bilaterally Cardio Rate: regular rate Rhythm: regular rhythm GI Inspection: No distended Palpation (GI): Soft to palpation and nontender Skin General skin exam: no rashes or lesions noted Neuro General: patient oriented x3 Extrem Other: Significant RA deformities of both hands Bilateral Z deformity of both thumbs Bilateral swan-neck deformities of multiple fingers Bilateral flexion deformities at the MCPs No active synovitis Normal range of motion of both wrists Thank you flexion contractures of both elbows but no active synovitis Normal range of motion of both shoulders Normal range of motion of knees without pain No ankle synovitis bilaterally Negative MTP squeeze test bilaterally Normal nailfold capillaroscopy Assessment & Plan Assessment & Plan (1) Rheumatoid arthritis involving multiple joints: Comment: 2006: Hydroxychloroquine started 2020: persistent synovitis ++ CCP May 2022: methotrexate added effective HCQ self DC by patient 02/2023 Code(s): M06.9 - Rheumatoid arthritis, unspecified Category: Medical Plan: This is a 57-year-old female with seropositive deforming RA who presents for follow-up. Doing well overall with no active synovitis. 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 Advised patient to follow-up with maintenance and utilities supervisor or prototype engineer manager Plan I spent 32 minutes reviewing patient's chart, reviewing her [place] chart, evaluating patient, ordering diagnostic workup, counseling patient and documenting in the chart Orders: Orders Anti DNA DS Antibody 4 Months M32.9 - Systemic lupus erythematosus, unspecified Complement C3 4 Months M32.9 - Systemic lupus erythematosus, unspecified Complement C4 4 Months M32.9 - Systemic lupus erythematosus, unspecified C Reactive Protein 4 Months M32.9 - Systemic lupus erythematosus, unspecified Erythrocyte Sedimentation Rate 4 Months M32.9 - Systemic lupus erythematosus, unspecified Protein Creatinine Ratio, Ur 4 Months M32.9 - Systemic lupus erythematosus, unspecified UA w Microscopic 4 Months M32.9 - Systemic lupus erythematosus, unspecified Complete Blood Count Auto Diff 4 Months M32.9 - Systemic lupus erythematosus, unspecified Comprehensive Met. Panel 4 Months M32.9 - Systemic lupus erythematosus, unspecified Coding Level of Care Code Est Pt Level 4 (70412) Complex EM visit Add On G2211 Diagnoses Rheumatoid arthritis involving multiple joints M06.9 SLE (systemic lupus erythematosus) M32.9 MCFP use of drug Z79.899 Nodular episcleritis, left eye H15.122
== END 2024-04-30 08:58 | disposition home or self-care (01) ==
PROVIDERS: PCP Internal Medicine; Visit Provider Student in an Organized Health Care Education/Training Program
DX: M06.9 Rheumatoid arthritis, unspecified (principal); M32.9 Systemic lupus erythematosus, unspecified; Z79.899 Other long term (current) drug therapy; H15.122 Nodular episcleritis, left eye
CPT/HCPCS: 99214; G2211

== ENCOUNTER 2024-12-17 08:10 | Outpatient (REF) | payer OTHER, SELFPAY ==
--- OUTSIDE RECORDS SUMMARY | 2024-12-17 08:19 | XMS_ITS | Clinical Summary ---
Author Organization [address] [facility] Address [address] [place] [address] Phone Care Team Providers Care Byproducts Extractor Name Role Phone Ana Franklin MD Primary Care Prov ider Allergies No known active allergies Medications METHOTREXATE ORAL Take by mouth. Active FOLIC ACID ORAL Take by mouth. 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 ? RA/SLE over lap SLE (systemic lupus erythema tosus) ([facility] V24, [facility] V28) 08/30/2016 Overview (05/03/2024): Onset ~ 2006 Hydroxychloroquine started 2006 Eye exam [place] 09/08, reported by patient 01/09, 04/12 Immunizations Name Administration Dates Next Due Influenza Quadravalent, adams mbinant, 0.5ml, preservative free (Flublok) 18yo and older 02/03/2023,04/09/2020 Influenza Quadrivalent, 0.5m l, preservative free (Fluarix; FluLaval; Fluzone) ages 6mo and older (Afluria) 3yo and older 04/19/2022,03/09/2021,05/04/2019 Influenza trivalent, 0.5mL, preservative free (Fluarix; FluLaval; Fluzone) ages 6mo and older (Afluria) 3 years and older 03/05/2024 Influenza, Unspecified 03/05/2021 Moderna SARS-CoV-2 COVID-19, mRNA, LNP-S, preservative free 08/15/2020 Tdap Tetanus diptheria acell ular pertussis (Boostrix; Adacel) 7yo and older 08/31/2015 Surgical History Surgery Date Site/Laterality Comments OTHER SURGICAL HISTORY PROCEDURE: DENIES PREVIOUS SURGERY Medical History Medical History Date Comments Lupus 2006 DX:Lupus Family History Medical History Relation Name Comments Breast cancer Sister Stomach cancer Uncle Maternal Colon cancer Neg Hx Ovarian cancer Neg Hx Pancreatic cancer Neg Hx Prostate cancer Neg Hx Uterine cancer Neg Hx Relation Name Status Comments Brother Alive Father Alive Mother Alive Sister Alive Uncle Maternal Alive Social History Tobacco Use Types Packs/Day Years Used Date Smoking Tobacco: Never Smokeless Tobacco: Never Tobacco Cessation:Counseling Given: Not Answered Alcohol Use Standard Drinks/Week Comments No 0 (1 standard drink = 0.6 oz pur e alcohol) Comments Unknown Sex and Gender Information Value Date Recorded Sex Assigned at Not on file Legal Sex Female 4:09 PM EST Gender Identity Not on file Sexual Orientation Not on file Obstetrics History Last Filed Vital Signs Vital Sign Reading Time Taken Comments Blood Pressure 110/64 04/27/2022 2:47 PM EST Pulse 62 04/27/2022 2:47 PM EST Temperature - - Respiratory Rate - - Oxygen Saturation - - Inhaled Oxygen Concentration - - Weight 54.4 kg (120 lb) 05/02/2024 10:29 AM EST Height 152.4 cm (5') 05/02/2024 10:29 AM EST Body Mass Index 23.44 05/02/2024 10:29 AM EST Plan of Treatment Health Maintenance Due Date Last Done Comments Hepatitis B Vaccines (1 of 3 - 19+ 3-dose series) 12/11/1986 Pneumococcal Vaccine: 50+ Years (1 of 1 - PCV) 12/11/2017 Zoster Vaccines (1 of 2) 12/11/2017 Cervical Cancer Screening: Pap Smear 01/27/2021 01/27/2018, 01/27/2018, 01/27/2018 HIV Screening 04/21/2022 Social Influencers of Health Screening 04/21/2022 COVID-19 Vaccine ( season) 2024 08/15/2020, 07/18/2020, 06/20/2020 Depression Screening 05/23/2024 Influenza Vaccine (#1) 2025 , 02/03/2023, 04/19/2022, Additional history exists Breast Cancer Screening 07/31/2025 08/01/2023, 01/14 DTaP,Tdap,and Td Vaccines (2 - Td or Tdap) 08/30/2025 08/31/2015 Colorectal Cancer Screening: FIT-DNA (Cologuard) 03/19/2027 03/19/2024 Hepatitis C Screening Completed 11/16/2019 HIB Vaccines Aged Out No longer eligi ble based on patient's age to complete this topic HPV Vaccines Aged Out No longer eligi ble based on patient's age to complete this topic Hepatitis A Vaccines Aged Out No long er eligible based on patient's age to complete this topic IPV Vaccines Aged Out No longer eligi ble based on patient's age to complete this topic MMR Vaccines Aged Out No longer eligi ble based on patient's age to complete this topic Meningococcal ACWY Vaccine Aged Out N o longer eligible based on patient's age to complete this topic Meningococcal B Vaccine Aged Out No l onger eligible based on patient's age to complete this topic RSV Immunization Patients Under 20 months Aged Out No longer eligible based on patient's age to complete this topic Varicella Vaccines Aged Out No longer eligible based on patient's age to complete this topic Procedures Procedure Name Priority Date/Time Associated Diagnosis Comments EXTERNAL COLOGUARD (FIT-DNA) REPORT 03/19/2024 SCREENING MAMMOGRAPHY BI 2-VIEW BREAST INC CAD Routine 08/01/2023 3:41 PM EDT Encounter for screening mammogram for malignant neoplasm of breast HM HEPATITIS C SCREENING Routine 11/16/2019 PAP SMEAR Routine 01/27/2018 from Last 3 Months or Most Recently Relevant to Health Maintenance Results * External Cologuard (FIT-DNA) Report (03/19/2024) us Provider Onbase MD LAB BODY FLUIDS AND STOOLS OR DERABLES Final Result * SCREENING MAMMOGRAPHY BI 2-VIEW BREAST INC CAD (08/01/2023 3:41 PM EDT) Anatomical Region Laterality Modality Radiographic Jordyn ging 04/14/2022 8:53 AM EST Narrative 08/02/2023 3:43 PM EDT This is a summary report. The complete report is available in the patient's medical record. If you cannot access the medical record, please contact the sending organization for a detailed fax or copy. BILATERAL 3D DIGITAL SCREENING MAMMOGRAM History: Routine screening. No current breast complaints. Family history of breast cancer in sister Comparison: Mammogram from 01/14/2017 Technique: Bilateral full-field digital 3D mammography was performed using standard CC and MLO projections CAD was used to evaluate this mammogram. Findings: Density: The breasts are heterogeneously dense which may obscure small masses-C RIGHT: No suspicious masses, groups of microcalcification or areas of architectural distortion identified. Stable typically benign parenchymal asymmetries LEFT: No suspicious masses, groups of microcalcifications or areas of architectural distortion identified. Stable typically benign parenchymal asymmetries IMPRESSION: : 1. No mammographic evidence of malignancy. BI-RADS Category 2 benign findings Recommendation: Routine annual screening mammography is recommended, patient may be eligible for screening breast MRI due to dense breast tissue and family history Procedure Note Kaiden Gamble MD - 01/09/2024 This is a summary report. The complete report is available in thepatient's medical record. If you cannot access the medical record, pleasecontact the sending organization for a detailed fax or copy. BILATERAL 3D DIGITAL SCREENING MAMMOGRAM History: Routine screening. No current breast complaints. Family historyof breast cancer in sister Comparison: Mammogram from 01/14/2017 Technique: Bilateral full-field digital 3D mammography was performed usingstandard CC and MLO projections CAD was used to evaluate this mammogram. Findings: Density: The breasts are heterogeneously dense which may obscure smallmasses-C RIGHT: No suspicious masses, groups of microcalcification or areas ofarchitectural distortion identified. Stable typically benign parenchymalasymmetries LEFT: No suspicious masses, groups of microcalcifications or areas ofarchitectural distortion identified. Stable typically benign parenchymalasymmetries IMPRESSION: : 1. No mammographic evidence of malignancy. BI-RADS Category 2 benign findings Recommendation: Routine annual screening mammography is recommended,patient may be eligible for screening breast MRI due to dense breasttissue and family history us Alysa BLAKE IMG XR PROCEDURES Final Re sult * Hepatitis C Screening (11/16/2019) Hepatitis C Screening Abstracted us Historical Provider HEALTH MAINTENANCE Final Result * Pap smear (01/27/2018) 01/27/2018 Narrative HISTORICAL TESTING LAB RESULTING AGENCY - 01/31/2018 2:39 PM EDT [id number] THINPREP PAP, IMAGED: NEGATIVE FOR SQUAMOUS INTRAEPITHELIAL LESION AND MALIGNANCY . RESULT OF APTIMA HIGH RISK HPV ASSAY: NEGATIVE (SEROTYPES 16,18,31,33,35,39,45,51,52,56,58,59,66,68) ALMA NIETO(ASCP) (CASE ELECTRONICALLY SIGNED 01 31 2018) ADEQUACY: SATISFACTORY. ENDOCERVICAL/TRANSFORMATION ZONE COMPONENT PRESENT. SOURCE: THINPREP PAP HPV ANY DX: REFLEX 16 AND 18, CERVICAL, IMAGED: CLINICAL INFORMATION: HPV ANY DIAGNOSIS. 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
--- OUTSIDE RECORDS SUMMARY | 2024-12-17 08:19 | XMS_ITS ---
[facility] Name [facility] Organization Unknown Care Team Organization Name Specialty Phone Email Start Date End [facility] CASIE SANCHEZ Primary Care 03/30/2022 01/09/2024
[2024-12-17 08:39] LABS: Baso%MD 0.4 %; Eos%MD 1.6 %; Hematocrit 38.2 % (37.0-47.0); Hemoglobin 12.9 g/dl (12.0-16.0); IG%MD 0.2 %; Lymph%MD 28.9 %; Mean Corpuscular HGB Conc 33.8 g/dl (31.0-35.0); Mean Corpuscular Hemoglobin 32.1 pg (27.0-33.0); Mean Corpuscular Volume 95.0 fL (80.0-98.0); Mono%MD 7.8 %; NRBC Abs Auto 0.000 X10*3/uL (0.0-0.012); NRBC Pct Auto 0.0 /100WBC (0.0-0.2); Neut%MD 61.1 %; Platelet Count 166 X10*3/uL (160-400); Red Blood Count 4.02 X10*6/uL (4.20-5.50); White Blood Count 4.9 X10*3/uL (4.8-10.8)
[2024-12-17 09:06] LABS: Band Neutrophils Percent 4 % (3-5); Eosinophils Absolute Manual 0.1 X10*3/uL (0.0-0.4); Eosinophils Percent Manual 2 % (0-4); Lymphocytes Absolute Manual 1.7 X10*3/uL (1.2-4.9); Lymphocytes Percent Manual 35 % (20-40); Monocytes Absolute Manual 0.1 X10*3/uL (0.1-1.2); Monocytes Percent Manual 3 % (2-11); Neutrophils Absolute Manual 2.9 X10*3/uL (2.0-8.3); Neutrophils Percent Manual 56 % (45-73)
[2024-12-17 09:08] LABS: Burr Cells 1+ (0-2) /OIF; RBC Morphology NOTED; Tear Drop Cells 1+ (0-2) /OIF
[2024-12-17 09:15] LABS: Alanine Aminotransferase 74 U/L (0-31); Albumin Level 4.1 g/dL (3.5-5.0); Alkaline Phosphatase 100 U/L (39-117); Anion Gap 10 (12-20); Aspartate Amino Transferase 51 U/L (5-31); Blood Urea Nitrogen 10 mg/dL (9-16); Calcium 8.6 mg/dL (8.4-10.2); Carbon Dioxide 25 mmol/L (22-29); Chloride 111 mmol/L (96-108); Estimated Glomerular Filt Rate > 60; Potassium 4.4 mmol/L (3.3-5.1); Sodium 142 mmol/L (135-145); Total Protein 8.1 g/dL (6.5-8.0)
== END 2024-12-17 08:11 | disposition home or self-care (01) ==
LOC: HO.LAB 08:10
PROVIDERS: PCP Internal Medicine; Visit Provider Student in an Organized Health Care Education/Training Program
DX: M06.9 Rheumatoid arthritis, unspecified (principal); M32.9 Systemic lupus erythematosus, unspecified
CPT/HCPCS: 36415; 80053; 85007; 85027; 85652; 86140

== ENCOUNTER 2024-12-21 12:56 | Outpatient (AMB) | payer OTHER, SELFPAY ==
--- OUTSIDE RECORDS SUMMARY | 2015-08-13 20:00 | XMS_ITS | Continuity of Care Document ---
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 Name Role Phone Mike Torres MD Unavailable Unavailable Medications Medication Instructions Dosage Effective Dates (start - stop) Status Comments Vitamin D2 1,250 mcg (50,000 unit) capsule 1 capsule once a week - Active Advance Directives Directive Yes / No Effective Date File Name No Information Encounters Encounter Description Practice Location Reason(s) For Visit Diagnoses Date Provider Providers Copied on Encounter [facility] [place], Josef Thrasher [facility], [place], [place], [id number], tel: [phone] [facility] Discoid lupus erythematosus 6 Brian Mckeon. [address] [facility], [place], [place], [id number] , [place]. tel: [phone] [facility] [place], Josef Thrasher [facility], [place], [place], [id number], tel:[phone] [facility] SYST LUPUS ERYTHEMATOSUS 0 1 5 Brian Mckeon. [address], [place], [place], [id number] , [place]. tel: [phone] Family History Family Member Type Diagnosis Age At Onset No Information Payers Payer name Insurance type Covered republican ID Authoriza tion(s) No Information Social History Type Description Quantity Date Captured Comments Sex Female Smoking Status No Information Chief Complaint And Reason For Visit No Information Reason For Referral Reason For Referral No Information History Of Present Illness Encounter Date Complaint History Of Prese nt Illness No Information Functional Status Date Functional Assessmen t No Information Instructions Date Instruction Additional Infor mation No Information Assessments Type Assessment Date No Information Patient Care Teams Name Effective Dates (start - stop) Status Members No Information
--- OUTSIDE RECORDS SUMMARY | 2024-12-21 12:59 | XMS_ITS | Clinical Summary ---
Author Organization [address] [facility] Address [address] [place] [address] Phone Care Team Providers Care Pants Presser Name Role Phone Ana Franklin MD Primary Care Prov ider Allergies No known active allergies Medications METHOTREXATE ORAL Take by mouth. Active FOLIC ACID ORAL Take by mouth. 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 ? RA/SLE over lap SLE (systemic lupus erythema tosus) ([facility] V24, [facility] V28) 08/30/2016 Overview (05/03/2024): Onset ~ 2006 [...] RESULTING AGENCY - 01/31/2018 2:39 PM EDT [id number] THINPREP PAP, IMAGED: NEGATIVE FOR SQUAMOUS INTRAEPITHELIAL [...] Health Maintenance Insurance [employer]MIN[employer] Care Teams Pants Presser Relationship Specialty Start Date End Date Ana Franklin MD [address] [place] [phone] PCP - General Internal Medicine 07/07/16
--- NOTE | 2024-12-21 13:02 | A.OFFVIS_ITS ---
Vital Signs 12/21/24 13:08 Height 5 ft Weight 125 lb 10.616 oz BMI 24.5 BP 112/60 Blood Pressure Location Lt brachial Position Sitting Pulse 71 Pulse Source Pulse Oximeter Pulse Oximetry (%) 98 Oxygen Delivery Method Room Air Intake Visit Reasons: SLE/RA Intake Note: Patient presents for SLE/RA follow up. Allergies No Known Allergies Allergy (Verified 12/21/24 13:08) Medication List - Last Reconciled 12/21/24 by Radha Chacon MD folic acid 1 mg PO DAILY methotrexate sodium 10 mg (4 x 2.5 mg) PO QWEEK 90 days HPI Comments Details: Patient is a 59 y.o. 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 Sheldon - On methotrexate 10mg and folic acid 1mg - Doing well in terms of joints - Noted some redness to her left eye but no pain - No synovitis on exam, no changes made to medications Today, - On methotrexate 10mg weekly PO and folic acid - Doing well - Sometimes has right 2nd PIP pain and the end of the day. 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 Declining methotrexate MTX added 05/2022 Eye exam OK 09/08, reported by patient 01/09, 04/12, 10/2022 Initial History: The patient presents today for evaluation of her arthritis. I had seen her over the last few years at [place]; the last time was a little over a year ago. She seemed to developed more persistent swelling and pain in the MCPs of the hands and the elbows. She has positive serologies for lupus and initially seemed to have synovitis from SLE. However there has been more persistent synovitis over the 2 years in the hands but mostly in the MCP joints. I tried to get her to go on methotrexate in the past but she was reluctant. She tells me she has a cousin in [place] who was on an injectable drug for RA; the patient wonders if she would be a candidate. She is not taking any analgesics presently. She had a flare-up of her synovitis back in April. She had been off the hydroxychloroquine for while but it was restarted and she was given a short course of prednisone by her PCP and that was helpful. Presently she says it is the 1st 2 MCPs of both hands and the right elbow that are painful. She recalls in [place] years ago she was treated with an antibiotic for 6 months because of a positive test for TB. I had checked her QuantiFERON test back in 2019 and it was negative. She last had her eyes checked last fall for monitoring her hydroxychloroquine use and they were okay. Current Rheumatology Medication(s): Methotrexate 10mg SC every week Folic acid 1mg daily PFSH Surgical History No history of previous surgery Family History Sister Breast cancer Father Hypertension Heart disease Mother Diabetes Social History Alcohol intake: never Patient Tobacco Use Status: Never used Tobacco Review of Systems Const Details: Review of Systems Constitutional: Denies fever, chills, weight loss ENT: Denies vision changes, eye pain or eye redness, dental caries, dry mouth GI: Denies nausea, vomiting, diarrhea, abdominal pain, change in BM Pulm: Denies SOB, RUDOLPH, hemoptysis, wheezing Cards: Denies chest pain, palpitations Skin: Denies Raynaud's, rash, nail changes, photosensitivity, VOUCHER EXAMINER: Denies headaches, weakness, paresthesias, recurrent falls MSK: as per HPI All other systems reviewed and are unremarkable except noted above Physical Exam Exam Exam: Vital signs reviewed Physical Examination CONSTITUITIONAL Patient alert and cooperative. Well appearing and in no apparent painful distress MSK Hands * Right Hand: Able to make a fist with the 2-5 digits but not the thumb. Thumb with fixed Z deformity. 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 Thumb with fixed Z deformity. 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 No swelling or TTP * Left Wrist: Full ROM. 70 degrees of wrist flexion, 80 degrees of wrist extension. No swelling or TTP Elbows * Right Elbow: Decreased ROM to extension. Will extend to about 100-110 degrees. No swelling or TTP. No TTP of the medial and lateral epicondyles * Left Elbow: Full ROM. No swelling or TTP. No TTP of the medial and lateral epicondyles Shoulders * Right shoulder: Full ROM. No swelling noted. No TTP of the AC joint, subacromial bursa or posterior shoulder * Left shoulder: Full ROM. No swelling noted. No TTP of the AC joint, subacromial bursa or posterior shoulder * Knees * Right knee: Full ROM. No swelling noted. No TTP of the knee joint lie or pes anserine bursa * Left knee: Full ROM. No swelling noted. No TTP of the knee joint lie or pes anserine bursa. * Crepitations felt bilaterally Ankles * Right ankle: Good ankle dorsiflexion and plantar flexion. No swelling. No TTP of the ankle joint * Left ankle: Good ankle dorsiflexion and plantar flexion. No swelling. No TTP of the ankle joint Feet * Right foot: Negative squeeze test * Left foot: Negative squeeze test Tender points? * No tenderness to palpation of the bilateral trapezius, supraspinatus, anterior costochondral junctions, bilateral suboccipital muscle insertions SKIN No rashes Vital Signs: Last Vital Signs Pulse 71 12/21/24 13:08 BP 112/60 12/21/24 13:08 Pulse Ox 98 12/21/24 13:08 Oxygen Delivery Method Room Air 12/21/24 13:08 BMI result Body Mass Index 24.5 Results Reviewed Results Reviewed: Laboratory Tests 03/12/24 12/17/24 08:55 08:32 WBC 4.9 RBC 4.02 L Hgb 12.9 Hct 38.2 Plt Count 166 ESR 38 H Sodium 142 Potassium 4.4 Chloride 111 H Carbon Dioxide 25 BUN 10 Creatinine 0.65 AST 51 H ALT 74 H C-Reactive Protein 1.03 H 1.41 H Assessment & Plan Assessment & Plan (1) Rheumatoid arthritis involving multiple joints: Comment: 2006: Hydroxychloroquine started 2020: persistent synovitis ++ CCP May 2022: methotrexate added effective HCQ self DC by patient 02/2023 Code(s): M06.9 - Rheumatoid arthritis, unspecified Category: Medical Plan: #Seropositive RA/SLE overlap Patient is a 59 y.o. female with RA/SLE overlap here today for follow up. Currently in remission with no active synovitis on examination. Complaining of fatigue which could be related to her methotrexate. Recommending increasing her folic acid dose. Of note her trends amylases were elevated on this check compared to last year. Given that she is on such a low dose of methotrexate I really do have a low suspicion that this is related to the methotrexate however we will recheck her transaminases in 2 weeks and if it remains elevated we will stop methotrexate and transition to leflunomide Also recommended PIP splinting for her intermittent joint pain of the right 2nd PIP. Plan - Continue methotrexate 10mg - Increase folic acid to 2mg daily - Recheck CMP in 2 weeks, if still elevated will stop Mtx and change to leflunomide - RTC 4 months - Labs before visit: CBC, CMP, ESR, CRP (2) SLE (systemic lupus erythematosus): Comment: Onset ~ 2006 (+++Sm+++LAW PROFESSOR+DsDNA) Hydroxychloroquine started 2006 2020: persistent synovitis, CCP, antiDNA both pos; RF negative: SLE/RA overlap.Declining methotrexate MTX added 05/2022 Eye exam OK 09/08, reported by patient 01/09, 04/12, 10/2022 Code(s): M32.9 - Systemic lupus erythematosus, unspecified Category: Medical Qualifiers: Systemic lupus erythematosus type: unspecified Systemic lupus erythematosus organ involvement: unspecified Qualified Code(s): M32.9 - Systemic lupus erythematosus, unspecified Plan: #SLE/RA overlap SLE RA overlap. No evidence of active lupus on examination. Plan RTC 4 months Labs before visit: CBC, CMP, ESR, CRP, C3, C4, dsDNA, UA, UPC (3) Encounter for methotrexate monitoring: Code(s): Z51.81 - Encounter for therapeutic drug level monitoring; Z79.631 - group home (current) use of antimetabolite agent Plan: #Long-term Current Use of Methotrexate Discussed with patient the benefits and risks of methotrexate for managing their rheumatic condition Benefits include reduced pain, reduced mortality, maintenance of remission and reduction of flares Risks include oral ulcers, photosensitivity, hepatotoxicity, hematologic toxicity, pneumonitis, flu-like symptoms (especially day after administration), nodulosis, lymphomas ? Limit alcohol and avoid Bactrim ? Monitoring: CBC, BMP, LFTs every 3-4 months and hepatitis serologies as needed Plan I spent 30 minutes reviewing the record and labs, taking a history, examining the patient, discussing the treatment plan, ordering diagnostic work up and documenting in the medical record Orders: Orders Complement C4 4 Months M32.9 - Systemic lupus erythematosus, unspecified Anti DNA DS Antibody 4 Months M32.9 - Systemic lupus erythematosus, unspecified Complement C3 4 Months M32.9 - Systemic lupus erythematosus, unspecified Erythrocyte Sedimentation Rate 4 Months M32.9 - Systemic lupus erythematosus, unspecified Comprehensive [place]. Panel Fast 4 Months M32.9 - Systemic lupus erythematosus, unspecified, Z79.60 - community health counselor (current) use of unspecified immunomodulators and immunosuppressants C Reactive Protein 4 Months M32.9 - Systemic lupus erythematosus, unspecified UA w Microscopic 4 Months M32.9 - Systemic lupus erythematosus, unspecified Protein Creatinine Ratio, Ur 4 Months M32.9 - Systemic lupus erythematosus, unspecified Complete Blood Count Auto Diff 4 Months M32.9 - Systemic lupus erythematosus, unspecified, Z79.60 - community health counselor (current) use of unspecified immunomodulators and immunosuppressants Comprehensive Met. Panel 2 Weeks R74.01 - Elevation of levels of liver transaminase levels Medications: Changed From folic acid 1 mg PO DAILY 90 tabs 1RF M06.9 - Rheumatoid arthritis, unspec ified To folic acid 2 mg (2 x 1 mg) PO DAILY 180 tabs 1RF 90 days M06.9 - Rheumatoid arthritis, unspecified Coding Level of Care Code Est Pt Level 4 (11157) Complex EM visit Add On G2211 Diagnoses Rheumatoid arthritis involving multiple joints M06.9 Systemic lupus erythematosus, unspecified SLE type, unspecified organ involvement status M32.9 Systemic lupus erythematosus type: unspecified Systemic lupus erythematosus organ involvement: unspecified Encounter for methotrexate monitoring Z51.81; Z79.631
[2024-12-21 13:08] VITALS: BP 112/60; PULSE 71; O2SAT 98; BMI 24.5
== END 2024-12-21 13:47 | disposition home or self-care (01) ==
LOC: HO.RHE 12:57
PROVIDERS: PCP Internal Medicine; Visit Provider Student in an Organized Health Care Education/Training Program
DX: M06.9 Rheumatoid arthritis, unspecified (principal); M32.9 Systemic lupus erythematosus, unspecified; Z51.81 Encounter for therapeutic drug level monitoring; Z79.631 Long term (current) use of antimetabolite agent
CPT/HCPCS: 99214; G2211

== ENCOUNTER 2025-01-14 09:18 | Outpatient (REF) | payer OTHER, SELFPAY ==
--- OUTSIDE RECORDS SUMMARY | 2025-01-14 10:04 | XMS_ITS | Clinical Summary ---
Author Organization [address] [facility] Address [address] [place] [address] Phone Care Team Providers Care Psychological Anthropologist Name Role Phone Ana Franklin MD Primary Care Prov ider Allergies No known active allergies Medications METHOTREXATE ORAL Take by mouth. Active FOLIC ACID ORAL Take by mouth. 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 ? RA/SLE over lap SLE (systemic lupus erythema tosus) ([facility] V24, [facility] V28) 08/30/2016 Overview (05/03/2024): Onset ~ [...] RESULTING AGENCY - 01/31/2018 2:39 PM EDT [id number] THINPREP PAP, IMAGED: NEGATIVE FOR SQUAMOUS INTRAEPITHELIAL [...] Health Maintenance Insurance [employer] Care Teams Psychological Anthropologist Relationship Specialty Start Date End Date Ana Franklin MD PCP - General Internal Medicine 07/07/16
[2025-01-14 10:57] LABS: Alanine Aminotransferase 19 U/L (0-31); Albumin Level 4.1 g/dL (3.5-5.0); Alkaline Phosphatase 84 U/L (39-117); Anion Gap 12 (12-20); Aspartate Amino Transferase 28 U/L (5-31); Blood Urea Nitrogen 10 mg/dL (9-16); Calcium 9.0 mg/dL (8.4-10.2); Carbon Dioxide 27 mmol/L (22-29); Chloride 107 mmol/L (96-108); Estimated Glomerular Filt Rate > 60; Potassium 3.9 mmol/L (3.3-5.1); Sodium 142 mmol/L (135-145); Total Protein 8.1 g/dL (6.5-8.0)
== END 2025-01-14 09:19 | disposition home or self-care (01) ==
LOC: HO.LAB 09:18
PROVIDERS: PCP Internal Medicine; Visit Provider Student in an Organized Health Care Education/Training Program
DX: R74.01 Elevation of levels of liver transaminase levels (principal)
CPT/HCPCS: 36415; 80053

== ENCOUNTER 2025-05-06 13:19 | Outpatient (REF) | payer OTHER, SELFPAY ==
[2025-05-06 13:39] LABS: MANUAL DIFF FLAG NO
[2025-05-06 14:58] LABS: Hematocrit 37.9 % (37.0-47.0); Hemoglobin 12.6 g/dl (12.0-16.0); Imm Gran Abs Auto 0.02 X10*3/uL (0.00-0.03); Imm Gran Pct Auto 0.4 % (0.0-0.4); Lymphocytes Absolute Auto 1.5 X10*3/uL (1.2-4.9); Mean Corpuscular HGB Conc 33.2 g/dl (31.0-35.0); Mean Corpuscular Hemoglobin 31.3 pg (27.0-33.0); Mean Corpuscular Volume 94.3 fL (80.0-98.0); NRBC Abs Auto 0.000 X10*3/uL (0.0-0.012); NRBC Pct Auto 0.0 /100WBC (0.0-0.2); Platelet Count 174 X10*3/uL (160-400); Red Blood Count 4.02 X10*6/uL (4.20-5.50); White Blood Count 5.5 X10*3/uL (4.8-10.8)
[2025-05-06 15:16] LABS: Appearance Urine Turbid; Glucose Urine UA Negative (Negative); PH 5.5 (5.0-9.0); Specific Gravity - Urine 1.025 (1.005-1.025)
[2025-05-06 15:40] LABS: Alanine Aminotransferase 19 U/L (0-31); Albumin Level 4.1 g/dL (3.5-5.0); Alkaline Phosphatase 86 U/L (39-117); Anion Gap 11 (12-20); Aspartate Amino Transferase 27 U/L (5-31); Blood Urea Nitrogen 16 mg/dL (9-16); Calcium 9.0 mg/dL (8.4-10.2); Carbon Dioxide 24 mmol/L (22-29); Chloride 109 mmol/L (96-108); Estimated Glomerular Filt Rate > 60; Potassium 3.7 mmol/L (3.3-5.1); Sodium 140 mmol/L (135-145); Total Protein 8.1 g/dL (6.5-8.0)
[2025-05-06 16:27] LABS: Protein/Creatinine Ratio, Ur 0.08 (<0.2); Total Protein Urine Random 8 mg/dL (<12)
--- OUTSIDE RECORDS SUMMARY | 2025-05-06 19:17 | XMS_ITS | Clinical Summary ---
Author Organization [facility] Prior to 03/23/2024 Address [address] [place] [address] Care Team Providers Care Wardrobe Coordinator Name Role Phone Arlyn Franklin MD Primary Care Provider [phone] [phone] Allergies No known active allergies Medications Medication Sig Dispensed Refills Start Date End Date Status METHOTREXATE OR Take by mouth. 0 Activ e FOLIC ACID OR Take by mouth. 0 Active Active Problems Problem Noted Date Family history of breast cancer in siste r 08/03/2023 Overview: patient may be eligible for screening breast MRI due to dense breast tissue and family history [facility] use of drug 11/16/2019 Cyclic citrullinated peptide (CCP) antib jazlyn positive 11/16/2019 Overview: RF negative. ? RA/SLE over lap SLE (systemic lupus erythematosus) 08/30 Overview: Onset ~ 2006 Hydroxychloroquine started 2006 Eye exam OK 09/08, reported by patient 01/09, 04/12 Immunizations Name Administration Dates Next Due COVID-19 (Moderna) 08/15/2020,07/18/2020, 021 COVID-19 (Moderna) PT Reported 08/15/2020,2020 Influenza (> 6 Months) 03/05/2024,2022,04/19/2022,03/09/2021,1 06/09/2019,05/04/2019 Influenza Flu (PT Reported) 03/05/2021 Tdap 08/31/2015 Family History Medical History Relation Name Comments CA Breast Sister CA Stomach Uncle Maternal CA Colon Negative Hx CA Ovarian Negative Hx CA Prostate Negative Hx CA of Pancreas Negative Hx Uterine Cancer Negative Hx Relation Name Status Comments Brother Alive Father Alive Mother Alive Sister Alive Uncle Maternal Alive Social History Tobacco Use Types Packs/Day Years Used Date Smoking Tobacco: Never Smokeless Tobacco: Never Tobacco Cessation:Counseling Given: Not Answered Alcohol Use Standard Drinks/Week Comments No 0 (1 standard drink = 0.6 oz pur e alcohol) Sex Assigned at Date Recorded Not on file Job Start Date Occupation Industry Not on file Not on file Not on file Last Filed Vital Signs Vital Sign Reading Time Taken Comments Blood Pressure 110/64 04/27/2022 2:47 PM EST Pulse 62 04/27/2022 2:47 PM EST Temperature 36.9 C (98.4 F) 04/27/2022 2:47 PM EST Respiratory Rate 12 05/04/2021 3:55 PM EST Oxygen Saturation - - Inhaled Oxygen Concentration - - Weight 52.6 kg (116 lb) 04/27/2022 2:47 PM EST Height 152.4 cm (5') 04/27/2022 2:47 PM EST Body Mass Index 22.65 04/27/2022 2:47 PM EST Plan of Treatment Health Maintenance Due Date Last Done Comments COLON CANCER SCREENING 12/11/2017 SHINGLES VACCINE (1 of 2) 12/11/2017 CERVICAL CANCER SCREENING 01/27/2021 01/27/2018 BMI CHECK/ADVISE 05/23/2024 03/05/2024 (Completed) CHOLESTEROL SCREENING 07/26/2024 07/27/2019 MAMMOGRAM 07/31/2024 08/01/2023, 01/14/2017 Covid-19 Vaccine (2022-2 4 season) 2025 08/15/2020, 08/15/2020, 07/18/2020, Additional history exists INFLUENZA (#1) 2025 03/05/2024, 01/21, 04/19/2022, Additional history exists DTAP/TDAP/TD (2 - Td or Tdap) 08/30/2025 08/31/2015 BASELINE HEALTH EXAM 40-64 03/05/202603/05, 03/05/2024 (Completed), 07/27/2019, Additional history exists PNEUMOCOCCAL VACCINE FOR HIG H RISK PATIENTS (#1) 12/11/2032 HEPATITIS C SCREENING Completed 11/16/2019 Insurance Payer Benefit Plan / Group Subscriber ID Effective Dates Phone Address Type [employer] PPO $20/30 [place]ID[place] [id number] 2022-Prese nt [employer] [address] [place] [id number] PPO Fee-for- Service Care Teams Wardrobe Coordinator Relationship Specialty Start Date End Date Arlyn Franklin MD [address] [place] [id number] PCP - General Internal Medicine 07/07/16
--- OUTSIDE RECORDS SUMMARY | 2025-05-06 19:17 | XMS_ITS | Encounter Summary ---
Author Organization [facility] Prior to 03/23/2024 Address [address] [place] [address] Care Team Providers Care Cellophane Casting Machine Repairer Name Role Phone Arlyn Franklin MD Primary Care Provider [phone] Encounter Details Date Type Department Care Team Description 08/30/2016 Release of Information Medical Records [address] [place] [id number] Abstract, Provider Social History Tobacco Use Types Packs/Day Years Used Date Smoking Tobacco: Never Alcohol Use Standard Drinks/Week Comments No 0 (1 standard drink = 0.6 oz pur e alcohol) Sex Assigned at Date Recorded Not on file Job Start Date Occupation Industry Not on file Not on file Not on file documented as of this encounter Plan of Treatment Not on file documented as of this encounter Visit Diagnoses Not on filedocumented in this encounter Care Teams Cellophane Casting Machine Repairer Relationship Specialty Start Date End Date Arlyn Franklin MD [address] [place] [address] PCP - General Internal Medicine 07/07/16 documented as of this encounter
--- OUTSIDE RECORDS SUMMARY | 2025-05-06 19:17 | XMS_ITS | Encounter Summary ---
Author Organization [facility] Prior to 03/23/2024 Address [address] [place] [address] Care Team Providers Care Grinding Wheel Dresser Name Role Phone Arlyn Franklin MD Primary Care Provider [phone] Encounter Details Date Type Department Care Team Description 09/28/2019 Telephone [facility] - [address] [address] Gabriele Virk MD Social History Tobacco Use Types Packs/Day Years Used Date Smoking Tobacco: Never Smokeless Tobacco: Never Alcohol Use Standard Drinks/Week Comments No 0 (1 standard drink = 0.6 oz pur e alcohol) Sex Assigned at Date Recorded Not on file Job Start Date Occupation Industry Not on file Not on file Not on file documented as of this encounter Miscellaneous Notes * Telephone Encounter - Bryant Ayoub M.A. - 09/28/2019 10:59 AM EDT Patient needs a 3 week f/u with Dr. Virk, in person visit. Left voicemail asking to return call. documented in this encounter Plan of Treatment Not on file documented as of this encounter Visit Diagnoses Not on filedocumented in this encounter Care Teams Grinding Wheel Dresser Relationship Specialty Start Date End Date Arlyn Franklin MD [address] [place] [id number] PCP - General Internal Medicine 07/07/16 documented as of this encounter
--- OUTSIDE RECORDS SUMMARY | 2025-05-06 19:17 | XMS_ITS | Encounter Summary ---
Author Organization [facility] Prior to 03/23/2024 Address [address] [place] [address] Care Team Providers Care Professor Of Mathematics Name Role Phone Arlyn Franklin MD Primary Care Provider [phone] Reason for Visit * Reason Onset Date Comments TEST RESULTS 08/15/2018 all done on 08/11 Encounter Details Date Type Department Care Team Description 08/15/2018 Telephone Adult Medicine - [place] [address] [place] [address] Arlyn Franklin, [address] [place] [address] TEST RESULTS (all done on 08/11) Social History Tobacco Use Types Packs/Day Years [...] encounter Miscellaneous Notes * Telephone Encounter - Neva Prajapati M.A. - 08/15/2018 1:56 PM EDT Pt called and advised of message below. * Telephone Encounter - Sheng Agudelo - 08/15/2018 12:59 PM EDT Pt returning call [phone] Ext [phone] * Telephone Encounter - Neva Prajapati M.A. - 08/15/2018 12:23 PM EDT Called pt left message to return call. * Telephone Encounter - Ann Hogan PA-C - 08/15/2018 12:18 PM EDT Please let her know that her inflammatory markers are high. Since it can take the plaquenil 1-2 months to work, I have sent a prednisone taper at the recommendation of Dr. Virk. She should makesure to follow up with Dr. Virk on 09/29 as planned. * Telephone Encounter - Estephania Hummel L.P.NChano - 08/15/2018 11:53 AM EDT Ann, I am forwarding this to you as I read his note to you and your answer.... Thank you, Tessa * Telephone Encounter - Letha Kilpatrick - 08/15/2018 10:31 AM EDT Inform patient: ANY URGENT OR ABNORMAL RESULTS WIILL RESULT IN A CALL BACK TO THE PATIENT RAISA. Type of test: :all test perry on 08/11 Date test was performed: 08/11 Where was the test performed: [facility] Who ordered this test?: Dr. Virk Is the doctor here today?: YES Can the message wait until the doctor returns?: YES IF PATIENT'S PCP IS NOT IN INSTRUCT PATIENT THAT THEY WILL RECEIVE A CALL BACK WHEN THE PCP IS IN THE OFFICE NEXT. documented in this encounter Plan of Treatment Not on file documented as of this encounter Visit Diagnoses Not on filedocumented in this encounter Care Teams Professor Of Mathematics Relationship Specialty Start Date End Date Arlyn Franklin MD [facility] [place] [address] PCP - General Internal Medicine 07/07/16 documented as of this encounter
--- OUTSIDE RECORDS SUMMARY | 2025-05-06 19:17 | XMS_ITS | Clinical Summary ---
Author Organization [facility] Address [address] [place] [address] Phone Care Team Providers Care Maitre D Name Role Phone Ana Franklin MD Primary Care Prov ider Allergies No known active allergies Medications METHOTREXATE ORAL Take by mouth. Active FOLIC ACID ORAL Take by mouth. 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 ? RA/SLE over lap SLE (systemic lupus erythematosus) 08/30/2016 Overview (05/03/2024): Onset ~ 2006 Hydroxychloroquine started 2006 Eye exam OK 09/08, reported by patient 01/09, 04/12 Immunizations Immunization Administration Dates Next Due Influenza Quadravalent, adams [...] Medical History Medical History Date Comments Lupus 2007 DX:Lupus Family History Medical History Relation Name [...] on file Sexual Orientation Not on file Last Filed Vital Signs [...] Years (1 of 1 - PCV) 12/11/2017 RSV Immunization Adult Patients (1 - Risk 50-74 years 1-dose series) 12/11/2017 Zoster Vaccines (1 of 2) 12/11/2017 Cervical Cancer Screening: Pap Smear 01/27/2021 01/27/2018, 01/27/2018 HIV Screening 04/21/2022 Social Influencers of Health Screening 04/21/2022 Depression Screening 05/23/2024 COVID-19 Vaccine ( season) 2025 08/15/2020, 07/18/2020, 06/20/2020 Influenza Vaccine (#1) 2025 , 02/03/2023, 04/19/2022, [...] RESULTING AGENCY - 01/31/2018 2:39 PM EDT [id number] THINPREP PAP, IMAGED: NEGATIVE FOR SQUAMOUS INTRAEPITHELIAL [...] Health Maintenance Insurance [employer] Care Teams Maitre D Relationship Specialty Start Date End Date Ana Franklin MD PCP - General Internal Medicine 07/07/16
--- OUTSIDE RECORDS SUMMARY | 2025-05-06 19:17 | XMS_ITS | Encounter Summary ---
Author Organization [facility] Prior to 03/23/2024 Address [address] [place] [address] Care Team Providers Care Data Entry Supervisor Name Role Phone Arlyn Franklin MD Primary Care Provider [phone] Encounter Details Date Type Department Care Team Description 06/03/2022 Sas Programmer Analyst Report Medical Records [address] [place] [address] Gabriele Virk MD Social History Tobacco Use [...] on filedocumented in this encounter Care Teams Data Entry Supervisor Relationship Specialty Start Date End Date Arlyn Franklin MD [address] [place] [id number] PCP - General Internal Medicine 07/07/16 documented as of this encounter
== END 2025-05-06 13:20 | disposition home or self-care (01) ==
LOC: HO.LAB 13:19
PROVIDERS: PCP Internal Medicine; Visit Provider Student in an Organized Health Care Education/Training Program
DX: Z01.84 Encounter for antibody response examination (principal); M32.9 Systemic lupus erythematosus, unspecified; Z79.60 Long term (current) use of unspecified immunomodulators and immunosuppressants
CPT/HCPCS: 36415; 80053; 81001; 82570; 84156; 85025; 85652; 86140; 86160; 86225

== ENCOUNTER 2025-05-10 10:03 | Outpatient (AMB) | payer OTHER, SELFPAY ==
--- NOTE | 2025-05-10 10:05 | A.OFFVIS_ITS ---
Vital Signs 05/10/25 10:13 Height 5 ft Weight 124 lb 8.979 oz BMI 24.3 BP 122/74 Blood Pressure Location Lt brachial Position Sitting Pulse 61 Pulse Source Pulse Oximeter Pulse Oximetry (%) 98 Oxygen Delivery Method Room Air Intake Visit Reasons: 4 mo f/u Intake Note: Patient presents today for SLE/RA follow up and test results. Casing Tester Required: No Information Interpreted: non-clinical & clinical Accompanied by: Self / Same As Patient Allergies No Known Allergies Allergy (Verified 05/10/25 10:12) HPI Comments Details: Patient is a 59 y.o. 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 Declining methotrexate MTX added 05/2022 Eye exam OK 09/08, reported by patient 01/09, 04/12, 10/2022 Initial History: The patient presents today for evaluation of her arthritis. I had seen her over the last few years at [place]; the last time was a little over a year ago. She seemed to developed more persistent swelling and pain in the MCPs of the hands and the elbows. She has positive serologies for lupus and initially seemed to have synovitis from SLE. However there has been more persistent synovitis over the 2 years in the hands but mostly in the MCP joints. I tried to get her to go on methotrexate in the past but she was reluctant. She tells me she has a cousin in [place] who was on an injectable drug for RA; the patient wonders if she would be a candidate. She is not taking any analgesics presently. She had a flare-up of her synovitis back in April. She had been off the hydroxychloroquine for while but it was restarted and she was given a short course of prednisone by her PCP and that was helpful. Presently she says it is the 1st 2 MCPs of both hands and the right elbow that are painful. She recalls in [place] years ago she was treated with an antibiotic for 6 months because of a positive test for TB. I had checked her QuantiFERON test back in 2019 and it was negative. She last had her eyes checked last fall for monitoring her hydroxychloroquine use and they were okay. Current Rheumatology Medication(s): Methotrexate 10mg SC every week Folic acid 2mg daily PFSH Surgical History No history of previous surgery Family History Sister Breast cancer Father Hypertension Heart disease Mother Diabetes Social History Alcohol intake: never Patient Tobacco Use Status: Never used Tobacco Review of Systems Narrative Review of Systems Constitutional: Denies fever, chills, weight loss ENT: Denies vision changes, eye pain or eye redness, dental caries, dry mouth GI: Denies nausea, vomiting, diarrhea, abdominal pain, change in BM Pulm: Denies SOB, RUDOLPH, hemoptysis, wheezing Cards: Denies chest pain, palpitations Skin: Denies Raynaud's, rash, nail changes, photosensitivity, DRAMA DIRECTOR: Denies headaches, weakness, paresthesias, recurrent falls MSK: as per HPI All other systems reviewed and are unremarkable except noted above Physical Exam Exam Exam: Vital signs reviewed Physical Examination CONSTITUITIONAL Patient alert and cooperative. Well appearing and in no apparent painful distress MSK Hands * Right Hand: Able to make a fist with the 2-5 digits but not the thumb. Thumb with fixed Z deformity. 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 Thumb with fixed Z deformity. Reducible Boutinerre's deformities of the other fingers with obvious ligamement laxity * No synovitis noted bilaterally Wrists * Right Wrist: Slightly decreased ROM to flexion. No swelling or TTP * Left Wrist: Decreased ROM. No swelling or TTP Elbows * Right Elbow: Decreased ROM to extension. Will extend to about 100-110 degrees. No swelling or TTP. No TTP of the medial and lateral epicondyles * Left Elbow: Full ROM. No swelling or TTP. No TTP of the medial and lateral epicondyles Shoulders * Right shoulder: Full ROM. No swelling noted. No TTP of the AC joint, subacromial bursa or posterior shoulder * Left shoulder: Full ROM. No swelling noted. No TTP of the AC joint, subacromial bursa or posterior shoulder * Knees * Right knee: Full ROM. No swelling noted. No TTP of the knee joint lie or pes anserine bursa * Left knee: Full ROM. No swelling noted. No TTP of the knee joint lie or pes anserine bursa. * Crepitations felt bilaterally Ankles * Right ankle: Good ankle dorsiflexion and plantar flexion. No swelling. No TTP of the ankle joint * Left ankle: Good ankle dorsiflexion and plantar flexion. No swelling. No TTP of the ankle joint Feet * Right foot: Negative squeeze test * Left foot: Negative squeeze test Tender points? * No tenderness to palpation of the bilateral trapezius, supraspinatus, anterior costochondral junctions, bilateral suboccipital muscle insertions SKIN No rashes Vital Signs: Last Vital Signs Pulse 61 05/10/25 10:13 BP 122/74 05/10/25 10:13 Pulse Ox 98 05/10/25 10:13 Oxygen Delivery Method Room Air 05/10/25 10:13 BMI result Body Mass Index 24.3 Results Reviewed Results Reviewed: Laboratory Tests 12/17/24 05/06/25 08:32 13:38 WBC 5.5 RBC 4.02 L Hgb 12.6 Hct 37.9 Plt Count 174 ESR 38 H 51 H Sodium 140 Potassium 3.7 Chloride 109 H Carbon Dioxide 24 BUN 16 Creatinine 0.63 AST 27 ALT 19 C-Reactive Protein 1.41 H 1.04 H Laboratory Tests 03/12/24 05/06/25 08:55 13:38 Double Strand DNA Ab 3 6 H Complement C3 131 87 Complement C4 14 L 7 L Assessment & Plan Assessment & Plan (1) Rheumatoid arthritis involving multiple joints: Comment: 2006: Hydroxychloroquine started 2020: persistent synovitis ++ CCP May 2022: methotrexate added effective HCQ self DC by patient 02/2023 Code(s): M06.9 - Rheumatoid arthritis, unspecified Category: Medical Plan: #Seropositive RA/SLE overlap Patient is a 59 y.o. female with RA/SLE overlap here today for follow up. Currently in remission with no active synovitis on examination. Fatigue related to methotrexate improved Her double-stranded DNA and complement are worse than previous however patient denies any worsening activity at this time. No escalation of therapy indicated. 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 Limit alcohol and avoid Bactrim ? Monitoring: CBC, BMP, LFTs every 3-4 months and hepatitis serologies as needed Plan I spent 25 minutes reviewing the record and labs, taking a history, examining the patient, discussing the treatment plan, ordering diagnostic work up and documenting in the medical record Coding Level of Care Code Est Pt Level 3 (19633) Add On Problem Visit Only Diagnoses Rheumatoid arthritis involving multiple joints M06.9 Systemic lupus erythematosus, unspecified SLE type, unspecified organ involvement status M32.9 Systemic lupus erythematosus type: unspecified Systemic lupus erythematosus organ involvement: unspecified Encounter for methotrexate monitoring Z51.81; Z79.631
[2025-05-10 10:13] VITALS: BP 122/74; PULSE 61; O2SAT 98; BMI 24.3
--- OUTSIDE RECORDS SUMMARY | 2025-05-10 11:20 | XMS_ITS | Clinical Summary ---
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
== END 2025-05-10 10:28 | disposition home or self-care (01) ==
LOC: HO.RHES 10:03
PROVIDERS: PCP Internal Medicine; Visit Provider Student in an Organized Health Care Education/Training Program
DX: M06.9 Rheumatoid arthritis, unspecified (principal); M32.9 Systemic lupus erythematosus, unspecified; Z51.81 Encounter for therapeutic drug level monitoring; Z79.631 Long term (current) use of antimetabolite agent
CPT/HCPCS: 99213; G2211